=== PATIENT | male | born 1985 | race Caucasian/White ===

== ENCOUNTER 2017-02-17 11:37 | Emergency (ER) | payer MEDICAID ==
[~2017-02-17] VITALS: Ht 177.8 cm; Wt 104.3 kg
[2017-02-17 11:59] VITALS: BP 147/90
[2017-02-17 13:17] LABS: Urine Bilirubin Negative (Negative); Urine Blood Negative /uL (Negative); Urine Color Yellow (Yellow); Urine Glucose Normal (Normal); Urine Ketone Negative (Negative); Urine Nitrite Negative (Negative); Urine RBC 7 /hpf (0 - 3); Urine Urobilinogen Normal (Negative); Urine pH 6.5 (5.0-8.0)
== END 2017-02-17 13:48 | disposition left against medical advice (07) ==
LOC: ER 11:56
DX: R06.02 Shortness of breath (principal); R07.9 Chest pain, unspecified; Z53.21 Procedure and treatment not carried out due to patient leaving prior to being seen by health care provider
CPT/HCPCS: 81001; 93005

== ENCOUNTER 2017-03-07 13:21 | Emergency (ER) | payer MEDICAID ==
[~2017-03-07] VITALS: Ht 175.3 cm; Wt 104.3 kg
[2017-03-07 13:35] VITALS: BP 140/88
== END 2017-03-07 15:55 | disposition home or self-care (01) ==
LOC: ER 13:21
DX: F41.9 Anxiety disorder, unspecified (principal); Z76.0 Encounter for issue of repeat prescription

== ENCOUNTER 2017-06-25 17:44 | Emergency (ER) | payer SELFPAY ==
[~2017-06-25] VITALS: Ht 177.8 cm; Wt 113.4 kg
[2017-06-25 17:56] VITALS: BP 125/84
== END 2017-06-25 19:45 | disposition home or self-care (01) ==
LOC: ER 17:47
DX: F41.9 Anxiety disorder, unspecified (principal); Z76.0 Encounter for issue of repeat prescription

== ENCOUNTER 2017-07-31 08:46 | Emergency (ER) | payer SELFPAY ==
[~2017-07-31] VITALS: Ht 177.8 cm; Wt 113.4 kg
[2017-07-31 09:02] VITALS: BP 115/88
== END 2017-07-31 09:17 | disposition home or self-care (01) ==
LOC: ER 08:46
DX: F41.9 Anxiety disorder, unspecified (principal); Z76.0 Encounter for issue of repeat prescription

== ENCOUNTER 2018-11-02 17:39 | Emergency (ER) | payer MEDICAID ==
[~2018-11-02] VITALS: Ht 177.8 cm; Wt 113.4 kg
[2018-11-02 17:51] VITALS: BP 139/72
[2018-11-02] MEDS ORDERED: SODIUM CHLORIDE 0.9% 1,000 ML IVB ONE (17:51)
[2018-11-02] MEDS ORDERED: LORazepam 2MG/ML-1ML VIAL ONE (17:53)
[2018-11-02] MEDS ORDERED: diphenhdrAMINE HCL 50 MG/1 ML VL ONE (17:55)
[2018-11-02] MEDS ORDERED: HALOPERIDOL LACTATE 5 MG/ML INJ VIAL ONE (17:56)
[2018-11-02] MEDS ORDERED: HALOPERIDOL LACTATE 5 MG/ML INJ VIAL IM ONE (18:00)
[2018-11-02] MEDS ORDERED: LORazepam 2MG/ML-1ML VIAL IV ONE (18:00)
[2018-11-02] MEDS ORDERED: diphenhdrAMINE HCL 50 MG/1 ML VL IV ONE (18:00)
[2018-11-02 18:36] LABS: INR 0.9 (0.9-1.15); Partial Thromboplastin Time 23.1 sec (23.78-33.04); Prothrombin Time 9.7 sec (9.27-12.13)
[2018-11-02 18:38] LABS: Basophils # (auto) 0 uL; Basophils % (auto) 0.3 % (0.0-2.0); Eosinophils # (auto) 0 uL; Eosinophils % (auto) 0.1 % (0.0-7.0); Hematocrit 46.3 % (41.0-53.0); Hemoglobin 16.2 g/dL (13.5-17.5); Lymphocytes # (auto) 1.3 uL; Lymphocytes % (auto) 14.6 % (10.0-50.0); Mean Corpuscular Hemoglobin 31.1 pg (28.0-32.0); Mean Corpuscular Volume 88.8 fL (80.0-100.0); Monocytes # (auto) 0.5 uL; Nucleated Red Blood Cells % 0.1 %; Platelet Count (auto) 311 10^3/uL (140-450); Red Blood Cells 5.21 10^6/uL (4.5-5.90); Red Cell Distribution Width 14.1 % (11.8-14.3); White Blood Cell 8.9 10^3/uL (4.4-10.8)
[2018-11-02 18:41] LABS: Anion Gap 8 (5-15); Blood Urea Nitrogen 9 mg/dL (7-18); Calcium 8.5 mg/dL (8.5-10.1); Carbon Dioxide 22 mmol/L (21-32); Chloride 110 mmol/L (98-107); Glucose 119 mg/dL (74-106); Magnesium 2.5 mg/dL (1.6-2.6); Potassium 3.5 mmol/L (3.5-5.1); Sodium 140 mmol/L (136-145)
[2018-11-02 18:48] LABS: Alanine Aminotransferase 38 U/L (16-61); Alkaline Phosphatase 90 U/L (45-117); Aspartate Aminotransferase 28 U/L (15-37); BUN/Creatinine Ratio 7.8; Bilirubin, Total 0.3 mg/dL (0.2-1.0); GFR African American > 60 mL/min; GFR Non-African American > 60 mL/min; Total Protein 8.2 g/dL (6.4-8.2)
[2018-11-02 19:15] LABS: Urine Bacteria NONE SEEN /hpf (None Seen); Urine Blood Negative /uL (Negative); Urine Specific Gravity 1.004 (1.001-1.035); Urine WBC <1 /hpf (0 - 3)
[2018-11-02 19:32] LABS: Amphetamine Screen, Urine NEGATIVE (NEGATIVE); Barbiturate Scree,Urine NEGATIVE (NEGATIVE); Benzodiazephine Screen, Urine NEGATIVE (NEGATIVE); Cannabinoid Screen, Urine NEGATIVE (NEGATIVE); Cocaine Screen, Urine NEGATIVE (NEGATIVE); Opiate Scree,Urine NEGATIVE (NEGATIVE); Phencyclidine Screen, Urine NEGATIVE (NEGATIVE)
== END 2018-11-02 19:52 | disposition home or self-care (01) ==
LOC: ER 17:40
DX: F41.9 Anxiety disorder, unspecified (principal); F10.229 Alcohol dependence with intoxication, unspecified; Z53.29 Procedure and treatment not carried out because of patient's decision for other reasons
CPT/HCPCS: 36415; 70450; 80053; 80307; 80320; 81001; 83735; 84484; 85025; 85610; 85730; 94761; 96361; 96372; 96374; 96375; 99284; J1200; J1630; J2060; J7030

== ENCOUNTER 2018-11-13 04:22 | Emergency (ER) | payer MEDICAID ==
[~2018-11-13] VITALS: Ht 177.8 cm; Wt 108.4 kg
[2018-11-13 04:38] VITALS: BP 145/100
== END 2018-11-13 07:40 | disposition left against medical advice (07) ==
LOC: EDBD 04:22 → ER 04:22
DX: R07.9 Chest pain, unspecified (principal); F41.9 Anxiety disorder, unspecified; I25.2 Old myocardial infarction
CPT/HCPCS: 71045; 93005; 94761

== ENCOUNTER 2021-12-21 21:52 | Emergency (ER) | payer MEDICAID ==
[~2021-12-21] VITALS: Ht 177.8 cm; Wt 122.9 kg
[2021-12-21 23:19] LABS: Basophils # (auto) 0 10 ^3/uL (0-0.2); Basophils % (auto) 0.2 % (0.0-2.0); Eosinophils # (auto) 0.1 10 ^3/uL (0-0.8); Eosinophils % (auto) 0.6 % (0.0-7.0); Hematocrit 45.2 % (41.0-53.0); Hemoglobin 15.8 g/dL (13.5-17.5); Lymphocytes # (auto) 1.2 10 ^3/uL (0.4-5.4); Lymphocytes % (auto) 9.9 % (10.0-50.0); Mean Corpuscular Hemoglobin 30.7 pg (28.0-32.0); Mean Corpuscular Volume 87.5 fL (80.0-100.0); Monocytes # (auto) 1.1 10 ^3/uL (0-1.3); Monocytes % (auto) 9.1 % (0.0-12.0); Neutrophils # (auto) 9.8 10 ^3/uL (1.6-8.6); Neutrophils % (auto) 80.2 % (37.0-80.0); Nucleated Red Blood Cells % 0.1 %; Red Blood Cells 5.16 10^6/uL (4.5-5.90); Red Cell Distribution Width 13.4 % (11.8-14.3); White Blood Cell 12.3 10^3/uL (4.4-10.8)
[2021-12-21 23:30] LABS: INR 0.94 (0.9-1.15); Partial Thromboplastin Time 27.3 sec (23.6-33.0)
[2021-12-21 23:32] LABS: Albumin 3.6 g/dL (3.4-5.0); Calcium 9.4 mg/dL (8.5-10.1); Potassium 3.8 mmol/L (3.5-5.1)
[2021-12-21 23:38] LABS: BUN/Creatinine Ratio 10.2; Bilirubin, Total 0.4 mg/dL (0.2-1.0); CRP High Sensitivity 0.56 mg/dL (< 0.3); Total Protein 7.7 g/dL (6.4-8.2)
[2021-12-22 01:12] LABS: Urine Amorphous Crystal FEW /hpf (None Seen); Urine Bacteria NONE SEEN /hpf (None Seen); Urine Blood Negative /uL (Negative); Urine Specific Gravity 1.014 (1.001-1.035); Urine WBC 1 /hpf (0 - 3)
[2021-12-22 01:20] VITALS: BP 109/73
[2021-12-22 01:26] LABS: Alcohol, Urine < 3.0 mg/dL (0-10); Amphetamine Screen, Urine POSITIVE (NEGATIVE); Barbiturate Scree,Urine NEGATIVE (NEGATIVE); Benzodiazephine Screen, Urine POSITIVE (NEGATIVE); Cannabinoid Screen, Urine NEGATIVE (NEGATIVE); Cocaine Screen, Urine NEGATIVE (NEGATIVE); Opiate Scree,Urine NEGATIVE (NEGATIVE); Phencyclidine Screen, Urine NEGATIVE (NEGATIVE)
== END 2021-12-22 02:27 | disposition home or self-care (01) ==
LOC: ER 21:53
DX: R07.89 Other chest pain (principal)
CPT/HCPCS: 36415; 71045; 80053; 80307; 81001; 84484; 85025; 85379; 85610; 85652; 85730; 86141; 93005

== ENCOUNTER 2023-01-18 06:37 | Emergency (ER) | payer MEDICAID ==
[~2023-01-18] VITALS: Ht 177.8 cm; Wt 122.9 kg
[2023-01-18 07:09] VITALS: BP 138/88
[2023-01-18] MEDS ORDERED: PENICILLIN G BENZ 1200000 UNITS/2 ML SYRG IM ONE (07:30)
== END 2023-01-18 08:56 | disposition home or self-care (01) ==
LOC: ER 06:37
DX: Z51.81 Encounter for therapeutic drug level monitoring (principal); Z20.2 Contact with and (suspected) exposure to infections with a predominantly sexual mode of transmission
CPT/HCPCS: 96372; 99283; J0561

== ENCOUNTER 2023-01-25 07:22 | Emergency (ER) | payer MEDICAID ==
[~2023-01-25] VITALS: Ht 177.8 cm; Wt 118.8 kg
[2023-01-25] MEDS ORDERED: PENICILLIN G BENZ 1200000 UNITS/2 ML SYRG IM ONE (07:45)
[2023-01-25 08:05] VITALS: BP 142/90
== END 2023-01-25 08:21 | disposition home or self-care (01) ==
LOC: ER 07:22
DX: A53.9 Syphilis, unspecified (principal); F41.9 Anxiety disorder, unspecified; Z51.81 Encounter for therapeutic drug level monitoring
CPT/HCPCS: 96372; 99283; J0561

== ENCOUNTER 2023-02-01 05:16 | Emergency (ER) | payer MEDICAID ==
[~2023-02-01] VITALS: Ht 177.8 cm; Wt 118.0 kg
[2023-02-01 07:25] VITALS: BP 135/93
[2023-02-01] MEDS ORDERED: PENICILLIN G BENZ 1200000 UNITS/2 ML SYRG IM ONE (07:45)
== END 2023-02-01 08:14 | disposition home or self-care (01) ==
LOC: ER 05:16
DX: Z20.2 Contact with and (suspected) exposure to infections with a predominantly sexual mode of transmission (principal)
CPT/HCPCS: 96372; 99283; J0561